=== PATIENT | male | born 1945 | race Caucasian/White ===

== ENCOUNTER → 2016-12-23 | Day surgery (SDC) | payer MEDICARE, OTHER ==
[~2016-12-23] VITALS: Ht 172.7 cm; Wt 82.6 kg
[~2016-12-23] MED LIST: ALEVE220 MG PO; ASPIRIN LO-DOSE81 MG PO; BYSTOLIC5 MG PO; CRESTOR20 MG PO; FISH OIL 1,2001 EAC2 PO; FLONASE 50 MCG/16 GM NOSE; MULTIVITAMINS1 EAC2 PO; NIACIN50 MG PO; PROTONIX40 MG PO; REFRESH PLUS1 EACH OPHTH; VITAMIN D-32000 UNI1 PO
== END ==
LOC: GEND 12-19 09:00 → GPOC 12-19 09:00 → GEND 07:24
PROC: 0DBN8ZX Excision of Sigmoid Colon, Via Natural or Artificial Opening Endoscopic, Diagnostic (ICD-10-PCS; principal; 2016-12-23)
DX: Z12.11 Encounter for screening for malignant neoplasm of colon (principal); K64.4 Residual hemorrhoidal skin tags; K57.30 Diverticulosis of large intestine without perforation or abscess without bleeding; I10 Essential (primary) hypertension; E55.9 Vitamin D deficiency, unspecified; J30.9 Allergic rhinitis, unspecified; I25.10 Atherosclerotic heart disease of native coronary artery without angina pectoris; E78.5 Hyperlipidemia, unspecified; L71.9 Rosacea, unspecified; Z98.890 Other specified postprocedural states; Z88.1 Allergy status to other antibiotic agents; Z88.2 Allergy status to sulfonamides; Z90.49 Acquired absence of other specified parts of digestive tract; Z79.82 Long term (current) use of aspirin; Z79.899 Other long term (current) drug therapy
CPT/HCPCS: J7030